=== PATIENT | female | born 1960 | race Two or more races ===

== ENCOUNTER 2020-05-06 13:18 | Inpatient (IN) | payer OTHER ==
[~2020-05-06 13:18] MED LIST: GABAPETIN PO; HYZAAR 50-12.51 EACH PO; PEPCID PO; PRAVACHOL PO; ZYRTEC PO
[2020-05-10] MEDS ORDERED: HYDRODIURIL12.5 MG (14:01)
[2020-05-10] MEDS ORDERED: LOSARTAN POTASS50 MG (14:01)
[2020-05-10] MEDS ORDERED: PRAVASTATIN SOD20 MG (14:01)
[2020-05-10] MEDS ORDERED: FAMOTIDINE20 MG (14:01)
[2020-05-10] MEDS ORDERED: GABAPENTIN800 M1 (14:01)
[2020-05-10] MEDS ORDERED: ZYRTEC10 MG (14:02)
== END 2020-05-14 09:13 | disposition home or self-care (01) | DRG 331 ==
LOC: CIR.AMB → O/R 05-10 08:10 → SURG 05-10 08:10 → CIR.AMB 05-10 12:07 → EDSTATUS 05-10 13:24 → RECOVERY 05-10 13:25 → SURG 05-10 19:39
PROVIDERS: ADMIT Colon & Rectal Surgery; ATTEND Colon & Rectal Surgery
PROC: 07TB4ZZ Resection of Mesenteric Lymphatic, Percutaneous Endoscopic Approach (ICD-10-PCS; 2020-05-10)
PROC: 4A1BXSH Monitoring of Gastrointestinal Vascular Perfusion using Indocyanine Green Dye, External Approach (ICD-10-PCS; 2020-05-10)
PROC: 0DTF4ZZ Resection of Right Large Intestine, Percutaneous Endoscopic Approach (ICD-10-PCS; principal; 2020-05-10 14:30)
DX: C18.2 Malignant neoplasm of ascending colon (principal); R59.0 Localized enlarged lymph nodes; Z20.828 Contact with and (suspected) exposure to other viral communicable diseases

== ENCOUNTER 2020-06-12 19:53 | Inpatient (IN) | payer OTHER ==
[~2020-06-12] VITALS: Ht 152.4 cm; Wt 77.6 kg
[~2020-06-12 19:53] MED LIST changes: +FAMOTIDINE20 MG; +GABAPENTIN800 M1; +HYDRODIURIL12.5 MG; +LOSARTAN POTASS50 MG; +PRAVASTATIN SOD20 MG; +ZYRTEC10 MG
[2020-06-12] MEDS ORDERED: PROAIR HFA8.5 GM IH (20:24)
--- NOTE | 2020-06-12 20:25 | NUR ---
SE REFIERE PACIENTE ALERTA,ORIENTADA X 3 ESFERAS REFIERE TENER VOMITOS DESDE SAIGE, PTE.DRA SULMA GARSIA, OPERADA EN 2019. SE UBICA EN AREA DE OBSERVACION.
--- NOTE | 2020-06-12 21:38 | NUR ---
IV LINE IS PLACED ON PATIENT'S RIGHT HAND AND BLOOD SAMPLES ARE COLLECTED IN ORDER TO COMPLETE LABS. SALINE LOCK IS PLACED ON IV LINE AND IV MEDS ARE ADMINISTERED ACCORDING TO DOCTOR'S ORDERS. PATIENT HAS PENDING X-RAY AND STAYS IN BED WITH RAILINGS UP.
--- NOTE | 2020-06-13 01:25 | NUR ---
SE RECIBE PTE FEMENIA DE 60 YRS ALERTA CONCIENTE Y TRANQUILA EN BESSY CON BARNDAS ELEVADA. PTE SE LE CHANG MUESTRA DE NIK ORDENADO POR EL SAMARIA AGUILAR Y SE LE REALIZA EKG. SE MANTIENE BAJO OBSERVACION.
--- NOTE | 2020-06-13 07:22 | NUR ---
SE RECIBE PTE FEMNINA ALERTA Y ORIENTADA EN LAS LUISA ESFERAS EN BESSY BAJA CON BARANDAS ELEVADAS Y FRENOS COLOCADOS POR SEGURIDAD. SE OSBERVA CON BUEN PATRON RESPIRATORIO Y NO REFIERE DOLOR. VENOPUNCION PATENTE KAVITA DE EDEMA Y ERITEMA RECIBIENDO TERAPIA DE IVFS 0.45NSS BAJANDO A 125ML/HR. PENDIENTE CONSULTA CON YA NOTIFICADA.
== END 2020-06-15 18:18 | disposition home or self-care (01) | DRG 690 ==
LOC: ER 19:53 → SURH 06-13 08:26 → SURG 06-13 08:26 → SURH 06-13 10:35
PROVIDERS: ADMIT Colon & Rectal Surgery; ATTEND Colon & Rectal Surgery
DX: N39.0 Urinary tract infection, site not specified (principal); I11.9 Hypertensive heart disease without heart failure; E86.0 Dehydration